=== PATIENT | male | born 2000 | race Caucasian/White ===

== ENCOUNTER 2021-05-31 19:36 | Emergency (ER) | payer OTHER ==
[~2021-05-31] VITALS: Ht 188 cm; Wt 77.1 kg
[~2021-05-31 19:36] MED LIST changes: -FINA5 PO
[2021-05-31] MEDS ORDERED: FINA5 PO (19:48)
== END 2021-05-31 22:39 | disposition home or self-care (01) ==
LOC: ER 19:36
DX: M79.18 Myalgia, other site (principal); R07.9 Chest pain, unspecified; Z79.899 Other long term (current) drug therapy
CPT/HCPCS: 36415; 71260; 93005; 93010; 99284-25; Q9967

== ENCOUNTER → 2021-05-31 | Outpatient (CLI) | payer OTHER ==
[~2021-05-31] MED LIST: AMOX50SU PO; FINA5 PO; RXCODACESY PO; TYLENOL
== END | disposition home or self-care (01) ==
LOC: LAB 18:17 → LAB SHORT 18:17
DX: R07.9 Chest pain, unspecified (principal)
CPT/HCPCS: 85379

== ENCOUNTER → 2022-04-02 | Outpatient (CLI) | payer OTHER ==
[~2022-04-02] MED LIST changes: +FINA5 PO
== END | disposition home or self-care (01) ==
LOC: LAB SHORT 16:30 → LAB 16:30
DX: L08.9 Local infection of the skin and subcutaneous tissue, unspecified (principal)
CPT/HCPCS: 87070; 87077; 87147; 87186; 87205